=== PATIENT | female | born 1985 | race Caucasian/White ===

== ENCOUNTER → 2017-06-03 | Outpatient (CLI) | payer BC ==
[2017-06-03 14:21] LABS: Basophils % (A) 0 %; Eosinophils # (A) 0.2 k/uL (0-0.7); Eosinophils % (A) 4 %; HCT 37.9 % (34.0-46.0); HGB 12.2 gm/dL (11.4-16.0); Lymphocytes # (A) 1.7 k/uL (1.0-4.8); Lymphocytes % (A) 25 %; MCH 28.6 pg (25.0-35.0); MCHC 32.2 g/dL (31.0-37.0); MCV 88.8 fL (80.0-100.0); Mean Platelet Volume 8.6; Monocytes # (A) 0.6 k/uL (0-1.0); Monocytes % (A) 8 %; Neutrophils # (A) 4.4 k/uL (1.3-7.7); Neutrophils % (A) 62 %; Platelet Count 341 k/uL (150-450); RBC 4.27 m/uL (3.80-5.40); RDW 13.8 % (11.5-15.5)
== END | disposition home or self-care (01) ==
LOC: LABPAT 13:40
PROVIDERS: ATTEND Obstetrics & Gynecology Obstetrics
DX: Z01.818 Encounter for other preprocedural examination (principal); O03.9 Complete or unspecified spontaneous abortion without complication
CPT/HCPCS: 85025; 86850; 86900; 86901

== ENCOUNTER 2017-06-04 06:27 | Day surgery (SDC) | payer BC ==
[2017-06-03 14:28] VITALS: BMI 20.7
[~2017-06-04 06:27] MED LIST: Pre Op ABX Message 1 EACH MISC MISCELLANE ONE
[2017-06-04] MEDS ORDERED: LACTATED RINGERS 1,000 ML IV ONE (06:56)
[2017-06-04] MEDS ORDERED: LIDOCAINE 1% 20 ML VIAL (10MG/ML) FOR IV START INTRADERMA ONE (06:57)
[2017-06-04] MEDS ORDERED: DEXAMETHASONE SOD PHOS (MDV) 100 MG/10 ML VIAL IVP ONE (06:59)
[2017-06-04] MEDS ORDERED: ONDANSETRON 4 MG/2 ML VIAL IVP ONE (07:00)
[2017-06-04] MEDS ORDERED: fentaNYL (PF) 50 MCG/ML 2 ML AMP ONE (07:39)
[2017-06-04] MEDS ORDERED: MIDAZOLAM 2 MG/2 ML VIAL ONE (07:39)
[2017-06-04] MEDS ORDERED: PROPOFOL 10 MG/ML 20 ML VIAL IV ONE (07:39)
[2017-06-04] MEDS ORDERED: LIDOCAINE 1% INJ 10MG/ML (20 ML MDV) ONE (07:39)
[2017-06-04] MEDS ORDERED: METHYLERGONOVINE 0.2 MG/ML 1 ML AMP ONE (07:39)
[2017-06-04] MEDS ORDERED: KETOROLAC 30 MG/ML 1 ML VIAL ONE (07:39)
--- NOTE | 2017-06-04 08:12 | P.OP ---
Date of Procedure: 06/04/17 Preoperative Diagnosis: Missed AB Postoperative Diagnosis: Same Procedure(s) Performed: Suction dilation and curettage Anesthesia: MAC Surgeon: Odette Lincoln Estimated Blood Loss (ml): 5 IV fluids (ml): 600 Urine output (ml): 50 Pathology: other (Products of conception) Condition: stable Disposition: PACU Indications for Procedure: Missed AB at 6 weeks 6 days no growth noted in crown-rump length over 1 week and minimal change in quantitative beta hCGs. Patient is known to be Rh+ Operative Findings: 7-8 week size uterine cavity. Moderate amount of products of conception were obtained Description of Procedure: Patient was taken operating room her general anesthesia was obtained without difficulty by the anesthesia department. She was then prepped and draped in the normal sterile fashion in the dorsal lithotomy position. A red rubber catheter was then used to drain the bladder of clear yellow urine. I would speculum was placed in the posterior vaginal vault the anterior lip of the cervix was visualized and grasped with a single-tooth tenaculum. The cervical canal was then dilated to 20-Lao and an 8 curved suction curette was then placed through the cervix and toward the endometrial cavity once the fundus was palpated dissection was turned on and a moderate amount of products of conception was obtained. Afterwards there was minimal bleeding. The single- tooth tenaculum was taken off the anterior lip of the cervix hemostasis was appreciated. All instruments were removed from the patient's vaginal vault specimen was sent to pathology for chromosomal analysis along with normal pathology review. COUNTS are correct 2 and patient tolerated procedure well.
[2017-06-04 08:22] VITALS: TEMP 97.8
[2017-06-04] MEDS ORDERED: MORPHINE SULFATE 4 MG/ML SYRINGE IVP ONE (08:45)
[2017-06-04 08:50] VITALS: RESP 18
[2017-06-04 09:46] VITALS: BP 103/65; PULSE 65
== END 2017-06-04 10:15 | disposition home or self-care (01) ==
LOC: OR 06:27
PROVIDERS: ATTEND Obstetrics & Gynecology Obstetrics
DX: O02.1 Missed abortion (principal); Z3A.01 Less than 8 weeks gestation of pregnancy
CPT/HCPCS: 86850; 86900; 86901; 88233; 88262; 88305

== ENCOUNTER → 2017-07-21 | Outpatient (CLI) | payer BC | END | disposition home or self-care (01) | LOC: LABWHC1 13:40 | PROVIDERS: ATTEND Obstetrics & Gynecology Obstetrics | DX: Q00-Q99 Congenital malformations, deformations and chromosomal abnormalities (principal) | CPT/HCPCS: 36415 ==

== ENCOUNTER → 2022-09-09 | Outpatient (CLI) | payer BC ==
--- NOTE | 2022-09-09 13:45 | US ---
EXAMINATION TYPE: Ultrasound OB <= 14 weeks transvaginal DATE OF EXAM: 09/09/2022 1:28 PM COMPARISON: NONE CLINICAL INDICATION: Female, 37 years old with history of 026.851 Bleeding; Vaginal bleeding EXAM PERFORMED: Transvaginal (TV) and Transabdominal (TA) EXAM MEASUREMENTS: GESTATIONAL AGE / DATING Physician Established: Not yet established Dates by LMP: (6 weeks/2 days) EDC: 05/03/2023 Dates by First Scan: No previous this is first scan Dates by Current Scan for: No IUP seen at this time MATERNAL ANATOMY Uterus: 7.8 x 4.2 x 4.4 cm Right Ovary: 3.6 x 2.2 x 2.9 cm Left Ovary: 2.0 x 1.3 x 3.2 cm Post CDS / Adnexa: Peristalsing bowel Presence of free fluid: No Presence of corpus luteal cyst: Right Ovary= 1.9 x 1.5 x 2.0 cm (thick walled with peripheral vascula rity. Some mural based nodularity probably retractile clot. Paraovarian cyst right ovary= 1.8 x 1.5 x 1.8 cm GESTATION / SURVEY IUP: No IUP seen at this time, Endometrial thickness= 0.6 cm Date of LMP: 07/27/2022 Beta HcG (if available): Not available at this time IMPRESSION: 1. No visualized IUP. Given patient's bleeding, correlate with beta hCG for possible failed . Early and nonvisualized ectopic should be excluded as well. 2. A 2.0 cm hemorrhagic corpus luteum in the right ovary. 3. Incidental: Prominent peristalsing bowel within the cul-de-sac/adnexa.
== END | disposition home or self-care (01) ==
LOC: RADUSWWP 13:03
PROVIDERS: ATTEND Obstetrics & Gynecology Obstetrics
DX: O26.852 Spotting complicating pregnancy, second trimester (principal); N93.9 Abnormal uterine and vaginal bleeding, unspecified; N83.11 Corpus luteum cyst of right ovary; Z3A.14 14 weeks gestation of pregnancy
CPT/HCPCS: 76801; 76817